=== PATIENT | male | born 1965 | race Caucasian/White ===

== ENCOUNTER 2021-03-13 21:03 | Inpatient (IN) | payer MEDICARE ==
[~2021-03-13] VITALS: Ht 172.7 cm; Wt 138.5 kg
[2021-03-13 21:21] LABS: BASOPHILS ABSOLUTE AUTO 0.01 K/mm3 (0.00-0.23); BASOPHILS PERCENT AUTO 0 % (0-2); EOSINOPHILS PERCENT AUTO 0 % (0-6); Hematocrit 52.7 % (37.0-53.0); Hemoglobin 17.8 g/dL (13.5-17.5); IMMATURE GRAN ABSOLUTE AUTO 0.03 K/mm3 (0.00-0.10); IMMATURE GRAN PERCENT AUTO 0 % (0-1); LYMPHOCYTES ABSOLUTE AUTO 0.27 K/mm3 (0.84-5.20); LYMPHOCYTES PERCENT AUTO 3 % (21-46); MONOCYTES PERCENT AUTO 1 % (4-13); Mean Corpuscular HGB 31.3 pg (26.0-34.0); Mean Corpuscular HGB Conc 33.8 g/dL (31.5-36.5); Mean Corpuscular Volume 93 fL (80-100); Mean Platelet Volume 10.4 fL (9.1-12.4); NEUTROPHILS PERCENT AUTO 96 % (41-73); Platelet Count 230 K/mm3 (150-400); RDW Coefficient Variation 14.4 % (11.7-14.2); RDW Standard Deviation 49.1 fL (35.1-46.3); Red Blood Cell Count 5.68 M/mm3 (4.30-5.90); White Blood Cell Count 10.61 K/mm3 (4.00-11.30)
[2021-03-13] MEDS ORDERED: ASPI325 PO (21:21)
[2021-03-13] MEDS ORDERED: WARF10 PO (21:21)
[2021-03-13] MEDS ORDERED: ALBU90OI INH (21:22)
[2021-03-13 21:53] LABS: Alanine Aminotransfer (ALT/SGP 87 U/L (12-78); Albumin, Blood 3.9 g/dL (3.4-5.0); Albumin/Globulin Ratio 1.1 (0.8-1.8); Alk Phos 96 U/L (50-136); Anion Gap 4 mmol/L (6-16); Aspartate Aminotrans (AST/SGOT 48 U/L (12-37); Bilirubin, Total 0.5 mg/dL (0.1-1.0); Blood Urea Nitrogen 19 mg/dL (8-24); Bun/Creatinine Ratio 20.9 (12.0-20.0); CO2, Blood 29 mmol/L (21-32); Calcium, Blood 8.6 mg/dL (8.5-10.1); Chloride, Blood 106 mmol/L (98-108); Creatinine, Blood 0.91 mg/dL (0.60-1.20); Globulin, Blood 3.4 g/dL (2.2-4.0); Glomerular Filtration Rate >60 (60-); Glucose, Blood 156 mg/dL (70-99); Potassium, Blood 4.4 mmol/L (3.5-5.5); Sodium, Blood 139 mmol/L (136-145); Total Protein, Blood 7.3 g/dL (6.4-8.2)
[2021-03-13 22:04] LABS: International Normalized Ratio 1.62
[2021-03-14 00:42] LABS: U Amphetamine Screen Not Detected; U Barbituate Screen Not Detected; U Benzodiazapine Screen DETECTED; U Methamphetamine Screen Not Detected
[2021-03-14 00:43] LABS: U Buprenorphine Screen Not Detected; U Cannabinoids Screen DETECTED; U Cocaine Screen Not Detected; U Methadone Screen Not Detected; U Opiates Screen Not Detected; U Oxycodone Screen Not Detected; U Phencyclidine Screen Not Detected; U Propoxyphene Screen Not Detected
--- NOTE | 2021-03-14 01:14 | NUR ---
ASSUMED CARE OF PATIENT AT APPROXIMATELY 2337 FROM ED SYLVIE DAVID. PATIENT ARRTIVED TO UNIT VIA STRETCHER; TRANSFER VIA SLIDE SHEET; HEPARIN GTT NOT INFUSING. MAX ASSIST TO SLIDE PATIENT FROM ED TO PCU STRETCHER. PATIENT RESPONDED TO VERBAL STIMULUS. PATIENT REPORTS HE DOESNT TRUST ANYONE BECAUSE HE LIVES IN A TRAIL[place] PARK; CAREGIVER WAS TAKING HIS PAIN MEDICATION BUT REPORTS HE FEELS SAFE AT HOME. PATIENT DENIES PAIN, NUMBNESS, TINGLING, DIZZINESS AND NAUSEA. PATIENT HAD BEDBATH UPON ARRIVAL; AFTER PATIENT REPORTS HE IS ABLE TO STAND BY SIDE OF BED; STEADY. NSR/ST ON TELE; OXYGEN SATURATION ABOVE 90% ON ROOM AIR; PATIENT HAS TO BE REMINDED TO KEEP OXYGEN ON; REPORTS HE DOESNT USE HIS CPAP IN HIS TRAILER. PATIENT REPORTS HE NEEDS ASSISTANCE WITH URINAL; IV LASIX GIVEN. PATIENT REPORTS HE DOESNT TAKE LASIX ANYMORE BECAUSE HE CANT LIVE HIS LIFE THAT WAY. HEPARIN GTT RESTARTED AFTER PATIENT TRANSFERRED TO STRETCHER. PATIENT REPORTS THAT IF WE DO NOT "KEEP ON TOP OF THE ATIVAN" THAT HE WILL NEED TO USE HIS MARIJUANA PEN. DR. CARRILLO CALLED ABOUT ATIVAN, NICOTINE PATCH AND CPAP ORDER. PATIENT CONSTANTLY MOVING AROUND IN BED; TAKING OXYGEN OFF; PULLING OXIMETRY STICKER OFF. PATIENT CURRENTLY RESTING IN BED; CALL LIGHT IN REACH; BED IN LOWEST POSISTION; BED ALARM ON
--- NOTE | 2021-03-14 04:04 | NUR ---
PATIENT WAS THRASHING AROUND IN BED WITH THIS RN WENT IN TO CHECK ON HIM. PATIENT REPORTS HE NEEDS TO PEE AND SAT UP AND STOOD; RIPPED SOME BLINDS OUT OF THE WINDOW AND URINATED ALL OVER THE FLOOR ON THE SIDE OF BED. PATIENT REFUSING TO WEAR OXYGEN, REPEATEDLY REMOVED NC AND OXIMETRY. PATIENT LAYING IN BED MAKING NOISES AND MOVING BACK AND FORTH WITH EYES CLOSED. PATIENT VERY PARANOID AND ANXIOUS; CALLED DR. CARRILLO; ORDERS RECIEVED. PATIENT REFUSING TO ALLOW OXIMETRY AND OXYGEN TUBING; SATTING 84-92 ON ROOM AIR.
--- NOTE | 2021-03-14 05:31 | NUR ---
CODE BEATTY; AT APPROXIMATELY 0515 LAB CALLED LOGISTICS VICE PRESIDENT TO HELP WITH LAB DRAW; PATIENT SWINGING AT LAB AND RESISTING LAB DRAW. PATIENT PINCHED STAFF THEN JUMPED OUT OF BED HEAD FIRST "I GOTTA PEE" AND GRABBED CHARGE NURSE CHEST. VERY IMPULSIVE; FALL RISK; PATIENT STARTED URINATING INTO TRASHCAN AND ALL OVER FLOOR; PALE AND REFUSING OXYGEN STILL; SWATTING WHEN STAFF ATTEMPTED TO PLACE NASAL CANNULA. SECURITY AND NURSING LINE THERAPIST RESPONDED. DR. CARRILLO CALLED; ORDERS RECIEVED.
--- NOTE | 2021-03-14 05:45 | NUR ---
PATIENT VERY AGITATED; PATIENT RIPPED IV TUBING APART; NEW Y SITE APPLIED AND DRESSING; ATTEMPTED TO CLEAN UP PATIENT BUT STILL ATTEMPTING TO HIT STAFF; REFUSING OXYGEN
[2021-03-14 06:02] LABS: Anion Gap 2 mmol/L (6-16); Blood Urea Nitrogen 19 mg/dL (8-24); Bun/Creatinine Ratio 17.1 (12.0-20.0); CO2, Blood 34 mmol/L (21-32); Calcium, Blood 8.7 mg/dL (8.5-10.1); Chloride, Blood 104 mmol/L (98-108); Creatinine, Blood 1.11 mg/dL (0.60-1.20); Glomerular Filtration Rate >60 (60-); Glucose, Blood 155 mg/dL (70-99); Potassium, Blood 4.6 mmol/L (3.5-5.5); Sodium, Blood 140 mmol/L (136-145)
--- NOTE | 2021-03-14 06:32 | NUR ---
PATIENT APPEARS TO BE RESTING COMFORTABLY; REFUSING OXYGEN.
--- NOTE | 2021-03-14 10:05 | NUR ---
ASSUMED CARE FROM NOC RN PT HAS BEEN SLEEPING SINCE SHIFT REPORT. IT WAS REPORTED FROM NOC SYLVIE STOVALL THAT PT WAS COMBATIVE AND NONCOOPERATIVE WITH TREATMENT AND CARE. PT WAS GIVEN ZYPREXA EARLY THIS MORNING WHEN A CODE SHIN WAS CALLED AND PT HAS BEEN SLEEPING SINCE. HEPARIN GTT IS RUNNING AND HAS BEEN VERIFIED. FULL ASSESSMENT AND VS WILL BE COMPLETED.
--- NOTE | 2021-03-14 13:31 | NUR ---
UPDATE PT WAS SLEEPING MOST OF THE MORNING DUE TO ZYPREXA. PT WOKE UP LATE MORNING AND CONSENTED TO AN ECHO, AN EKG AND MORNING MEDICATION. PT IS UNSURE ABOUT WHAT HAPPENED LAST NIGHT HE DOES NOT REMEMBER ANYTHING OTHER THAN FALLING ASLEEP, BUT HE UNDERSTANDS THAT SOMETHING HAPPENED THE BLINDS IN HIS ROOM WERE DAMAGED. PT DENIED HIS COMBATIVE ACTIONS AT FIRST BUT THEN BECAME APOLOGETIC THE DAY CONTINUED. PT IS NOW IN THE CHAIR SITTING UP, ALERT AND ORIENTED. HEP GTT RUNNING AND COMPLIANT WITH MEDICATION AND TREATMENTS. CARDIOLOGY IS PLANNING FOR ANGIO TOMORROW
--- NOTE | 2021-03-14 18:36 | NUR ---
SHIFT SUMMARY PT HAS BEEN VERY PLEASANT TODAY. PT DOES GET SLIGHTLY UPSET WHEN IN PAIN AND IS TRIGGERED BY POLITICAL ISSUES AND THE FACT HE CAN'T HAVE HIS CANNIBIS PENS. PT OTHERWISE HAS BEEN KIND AND COOPERATIVE TODAY. THE ECHO WAS COMPLETED WAS AN EKG. PT HAD 6 BEATS OF VTACH THIS MORNING, DR. TAYLOR WAS MADE AWARE. PT HAS BEEN SITTING IN THE CHAIR TODAY AND THE HEPARIN GTT CONTINUES. PT HAS BEEN USING THE URINAL AT BEDSIDE INDEPENDENTLY. PT IS ALERT AND ORIENTED AND IS WATCHING TV IN HIS ROOM AT THIS TIME. VS STABLE, PT SCHEDULED FOR ANGIO TOMORROW WITH CARDIOLOGY DR. GAMA
[2021-03-15 04:44] LABS: International Normalized Ratio 1.23; Prothrombin Time Results 13.1 Sec (9.7-11.5)
--- NOTE | 2021-03-15 10:55 | NUR ---
PT THREW A FIT THIS AM BEFORE ANGIO PROCEDURE, STARTED BEING PHYSICALLY AND VERBALLY AGGRESSIVE, WAS MAD ABOUT NOT BEING ABLE TO GO TO THE PROCEDURE YET SINCE HE WAS TOLD THAT THEY'RE GONNA TAKE HIM AT 8AM, AND IT WAS ALREADY 0820. THIS RN WENT IN THE ROOM PT WAS YELLING AND SOMETHING FELL ON THE FLOOR. PT THREW HIS URINAL ON THE FLOOR PT CONTINUES TO YELL HE WAS HITTING ON THE TABLE, THIS RN ASKED THE PT TO CALM DOWN, PT DOESNT SEEM TO BE REDIRECTABLE CALLED FOR BACK UP AND CONTRACT NEGOTIATION SPECIALIST WENT IN THE PT ROOM WELL TO REDIRECT PT. PT WAS TOLD THAT HIS BEHAVIOR IS NOT ACCEPTABLE, DR MARRUFO TALKED TO THE PT WELL HAD HIM SIGN A BEHAVIOR CONTRACT. PT WAS THEN TAKEN TO CARE TRANSITION MGR FOR ANGIO. AWAITING FOR PT TO COME BACK
--- NOTE | 2021-03-15 16:06 | NUR ---
Patient is sitting on a chair and alert. Patient tells me about his medical history and the plan to send him [place] for a heart valve replacement. Patient then shares about his family unit complications, his Confucianism jose and his career as a professional merchandise displayer. Patient also shares his concerns about his furture and the plans he has for the future. I normalize his experience, reinforce helpful attitudes and provide therapeutic listening, pastoral pet adoption counselor and prayer. Patient responds well and shows signs of increased peace. Spiritual care will continue to remain available to patient and family.
--- NOTE | 2021-03-15 17:37 | NUR ---
PT SUMMARY: PT HAS BEEN COOPERATIVE AND PLEASANT AFTER THE ANGIO PROCEDURE, GETS EASILY IRRITATED STILL OVER SMALL THINGS. PT AWAITING TO BE COBRA TRANSFERRED TO [place] IF THERE'S ANY BED AVAILABILITY FOR OPEN HEART SURGERY VALVE REPLACEMENT WHICH IS PT WAS AGREEABLE. PT HAS RIGHT RADIAL AND BRACHIAL ACCESS SITE, TR BAND IS OFF CLEAR DRESSING IN PLACE NO HEMATOMA OR BLEEDING NOTED, RIGHT AC WITH ITALIA DRESSING INTACT IN PLACE. HEPARIN GTT RESTARTED PER DR POSEY. VITALS HAS BEEN STABLE, REMAINS ON 2L OF O2 SATS HAS BEEN ABOVE 92%, MILD SOB WITH EXERTION. HAD OVER 3L'S URINE OUTPUT FOR THE SHIFT. PT INDEPENDENT IN THE ROOM, WAS UP IN THE CHAIR MOST OF THE SHIFT, MORPHINE IV X2 DOSES GIVEN FOR SHOULDER PAIN AND HEADACHE. NO OTHER ISSUES A THIS TIME, WILL MONITOR UNTIL THE END OF SHIFT
[2021-03-15 21:27] LABS: Influenza A, PCR NEGATIVE (NEGATIVE); Influenza B, PCR NEGATIVE (NEGATIVE); Resp Syncytial Virus, PCR NEGATIVE (NEGATIVE); SARS-Cov-2 (COVID-19) PCR, MMC NEGATIVE (NEGATIVE)
[2021-03-16 00:55] LABS: Anion Gap 2 mmol/L (6-16); Blood Urea Nitrogen 27 mg/dL (8-24); Bun/Creatinine Ratio 23.7 (12.0-20.0); CO2, Blood 36 mmol/L (21-32); Calcium, Blood 8.4 mg/dL (8.5-10.1); Chloride, Blood 97 mmol/L (98-108); Creatinine, Blood 1.14 mg/dL (0.60-1.20); Glomerular Filtration Rate >60 (60-); Glucose, Blood 120 mg/dL (70-99); Potassium, Blood 3.6 mmol/L (3.5-5.5); Sodium, Blood 135 mmol/L (136-145)
--- NOTE | 2021-03-16 06:17 | NUR ---
shift summary pt did not rest well through the night. pt frequently complains of pain in hips and shoulders bialterally. alert and oriented, able to make needs known. cooperative with plan of care. previously been having behavior issues, but was not a problem last night. pt easily frustrated, but remained calm last night. pt becomes short of breath with activity, placed on 3lnc. tele nsr. no c/o chest pain, but remains on hep gtt - see emar for tritration. pt a candidate for heart surgery and is approved for [facility] transfer, but [facility] called checking in on status of patient. they explained that he is a priority on their list, but do not have open beds. they asked rn's to notify [facility] at [phone] for any critical changes that might require him to be urgently seen. pt is a stand by assist/independent in room. voids to urinal. no bm. started new 20g in l wrist, very difficult stick. vss. call light within reach, bed in lowest position. will continue to monitor.
[2021-03-16 09:39] LABS: Mean Platelet Volume 10.5 fL (9.1-12.4); Platelet Count 207 K/mm3 (150-400)
--- NOTE | 2021-03-16 10:10 | NUR ---
AM NOTED ASSUMED CARE OF PATIENT AT APPROX 0700. PT ALERT, ORIENTED x4; APPEARS ANXIOUS AND FIDGETING. PT MOVING FROM SITTING ON SIDE OF BED TO LYING AND BACK WHILE RN IN ROOM. PT STATES "ILL NEED HELP", WHEN THIS RN INQUIRED, HE STATES "GETTING CLEANED UP". PT OFFERED BED BATH, SENIOR STATISTICAL PROGRAMMER IN ROOM TO ASSIST PATIENT WITH BEDBATH. PT REPORTS CHRONIC PAIN, DENIES NEED FOR MEDICATIONS AT THIS TIME. PT SOB, PT ON RA AT 87-88%, REPLACED 2L O2 VIA NC, PT QUICKLY REOCVERED TO 90-93%, ENCOURAGED PT TO KEEP NC IN PLACE AND TO BREATH IN THROUGH THE NOSE AND OUT THROUGH THE MOUTH. LS DIMINISHED T/O. BOWEL TONES NORMOACTIVE, DENIES TENDERNESS, DISTENDED, WHICH PT STATES NORMAL FOR HIM. PT HAS EDEMA 1+ TO BLE. HEPARIN GTT, VERIFIED AT SHIFT CHANGE WITH NOC RN. PLANS FOR MRI DURING SHIFT. DISCUSSED ANXIETY WITH DR MARRUFO, NEW ORDERS ENTERED FOR XANAX AND ATIVAN FOR MRI. ROLLER PRINT TENDER PLAN TO COBRA TRANSFER TO ADDRESS HEART VALVE. WILL CONTINUE TO MONITOR.
--- NOTE | 2021-03-16 15:45 | NUR ---
PT BACK FROM MRI
--- NOTE | 2021-03-16 15:46 | NUR ---
SHIFT SUMMARY PT APPEARS TO BE SLEEPING THIS AFTERNOON, MEDICATED FOR ANXIETY PRIOR TO MRI. WHILE PT SLEEPING IN BED, PT STATES HIS LEFT GREAT TOE NAIL WAS RIPPED OFF, CHAIN PERSON FOUND PT BLEEDING, CALLED RN TO ROOM. DRESSED WITH GAUZED AND COBAN. PT IN BED, BED IN LOW, BED ALARM ON, CALL LIGHT WITHIN REACH. NO OTHER ACUTE CHANGES NOTED. WILL CONTINUE TO MONITOR UNITL REPORT GIVEN TO ONCOMING RN.
== END 2021-03-16 20:20 | disposition short-term general hospital (02) | DRG 280 ==
LOC: ER 21:03 → PCU 21:04
PROVIDERS: Emergency Medicine; Internal Medicine Cardiovascular Disease; ADMIT Internal Medicine
PROC: 4A023N6 Measurement of Cardiac Sampling and Pressure, Right Heart, Percutaneous Approach (ICD-10-PCS; principal; 2021-03-15)
PROC: B2111ZZ Fluoroscopy of Multiple Coronary Arteries using Low Osmolar Contrast (ICD-10-PCS; 2021-03-15)
DX: I21.4 Non-ST elevation (NSTEMI) myocardial infarction (principal); J96.01 Acute respiratory failure with hypoxia; I50.21 Acute systolic (congestive) heart failure; Z68.42 Body mass index [BMI] 45.0-49.9, adult; I47.2 Ventricular tachycardia; I42.9 Cardiomyopathy, unspecified; T82.857A Stenosis of other cardiac prosthetic devices, implants and grafts, initial encounter; I71.9 Aortic aneurysm of unspecified site, without rupture; Z20.822 Contact with and (suspected) exposure to COVID-19; E66.01 Morbid (severe) obesity due to excess calories; E11.9 Type 2 diabetes mellitus without complications; I11.0 Hypertensive heart disease with heart failure; K21.9 Gastro-esophageal reflux disease without esophagitis; F41.9 Anxiety disorder, unspecified; M19.90 Unspecified osteoarthritis, unspecified site; F17.200 Nicotine dependence, unspecified, uncomplicated; F91.8 Other conduct disorders; G47.33 Obstructive sleep apnea (adult) (pediatric); H53.47 Heteronymous bilateral field defects; I69.312 Visuospatial deficit and spatial neglect following cerebral infarction; Z95.2 Presence of prosthetic heart valve; Z88.0 Allergy status to penicillin; Z88.8 Allergy status to other drugs, medicaments and biological substances; Z79.4 Long term (current) use of insulin; Z79.01 Long term (current) use of anticoagulants; Z79.82 Long term (current) use of aspirin; Z79.899 Other long term (current) drug therapy; Y83.1 Surgical operation with implant of artificial internal device as the cause of abnormal reaction of the patient, or of later complication, without mention of misadventure at the time of the procedure
CPT/HCPCS: 0241U; 36415; 70551; 71045; 76937; 80048; 80053; 82947; 83880; 84484; 85025; 85049; 85347; 85610; 85730; 86850; 86900; 86901; 93005; 93010; 93456; 93880; 94762; 96365; 96372; 96375; 96376; 99285-25; A9270; A9270-GY; C1751; C1769; C1894; C8929; G0378; J1644; J1940; J2060; J2250; J2270; J3010; J7030; J7040; Q9957; Q9967